=== PATIENT | female | born 1960 | race Two or more races ===

== ENCOUNTER → 2019-09-13 13:42 | Outpatient (CLI) | payer OTHER | END | disposition home or self-care (01) | LOC: LAB 13:42 | DX: N30.00 Acute cystitis without hematuria (principal) ==

== ENCOUNTER 2019-09-13 14:30 | Outpatient (CLI) | payer OTHER | END 2019-09-14 08:38 | disposition home or self-care (01) | LOC: SONOGRAMA 14:30 | DX: R31.21 Asymptomatic microscopic hematuria (principal) ==

== ENCOUNTER 2022-09-04 09:01 | Outpatient (CLI) | payer OTHER | END 2022-09-04 09:06 | disposition home or self-care (01) | LOC: SONOGRAMA 09:01 | PROVIDERS: ATTEND Pathology Anatomic Pathology & Clinical Pathology | DX: D11.0 Benign neoplasm of parotid gland (principal); R59.0 Localized enlarged lymph nodes ==